=== PATIENT | male | born 1990 | race American Indian/Alaskan Native ===

== ENCOUNTER 2017-01-19 19:13 | Emergency (ER) | payer SELFPAY ==
[2017-01-19 19:32] VITALS: BP 107/73
[2017-01-19 21:29] LABS: Bilirubin,Urine NEG (Negative); Blood,Urine NEG (Negative); Ketones,Urine NEG (Negative); Leukocyte Esterase,Urine NEG (Negative); Mucus,Urine FEW /HPF; Nitrite,Urine NEG (Negative); Protein,Urine <15 mg/dL mg/dL (Negative); Urobilinogen,Urine < 2.0 mg/dL (<2.0); WBC,Urine < 1.0 /HPF (0.0-6.0)
--- NOTE | 2017-01-19 21:29 | Emergency Department Report ---
Entered by KHALIDA MCCARTHY, acting as scribe for GREGORY RONDON PA. ED Male HPI - General Chief complaint: Urogenital-Male Stated complaint: GENITAL PAIN Time Seen by Provider: 01/19/17 20:12 Source: patient Mode of arrival: Ambulatory Limitations: No Limitations - History of Present Illness Initial comments: 26 year old male with no significant PMHx presents to the ED c/o rash around the shaft of penis that began 1 month ago. Denies penile discharge, dysuria, urgency, frequency, nausea, vomiting, fever, chills, abdominal pain, and chest pain. Denies pruritus or pain. Denies being diagnosed with any STDs or having similar symptoms in the past. Reports being sexually active without protection with 1 partner, who is with him in the ED with him to get checked as well. Uses tobacco products daily and consumes EtOH occasionally. MD Complaint: other (blisters around shaft of penis ) Onset/Timin -: month(s) Location: penis Radiation: none Severity: mild Severity scale (0 -10): 0 Quality: burning Consistency: constant Improves with: none Worsens with: none denies other symptoms. denies: discharge, swelling, dysuria, fever, nausea/ vomiting, other (urgency, frequency, chills, chest pain, SOB, and abdominal pain ) - Related Data Sexually active: Yes (1 partner) Previous Rx's Medication Instructions Recorded Last Taken Type Magnesium Citrate [Citrate of 296 ml PO ONCE #1 solution 08/30/14 Unknown Rx Magnesia] traMADol [Ultram 50 MG tab] 50 mg PO Q6HR PRN #14 tablet 08/30/14 Unknown Rx Allergies Allergy/AdvReac Type Severity Reaction Status Date / Time bacitracin Allergy Hives Verified 08/30/14 08:53 [From Neosporin ([id number])] bacitracin zinc Allergy Hives Verified 08/30/14 08:53 [From Neosporin ([id number])] neomycin sulfate Allergy Hives Verified 08/30/14 08:53 [From Neosporin ([id number])] polymyxin B Allergy Hives Verified 08/30/14 08:53 [From Neosporin ([id number])] ED Review of Systems Comment: All other systems reviewed and negative Constitutional: denies: chills, fever, malaise Eyes: denies: eye pain ENT: denies: ear pain, throat pain, congestion Respiratory: denies: orthopnea, shortness of breath Cardiovascular: denies: chest pain, palpitations Endocrine: no symptoms reported Gastrointestinal: denies: abdominal pain, nausea, vomiting Genitourinary: denies: urgency, dysuria, frequency, hematuria, discharge, testicular pain, testicular mass Musculoskeletal: denies: back pain Skin: rash Neurological: denies: headache, weakness ED Past Medical Hx - Past Medical History Previous Medical History?: No - Surgical History Past Surgical History?: No - Social History Smoking Status: Current Every Day Smoker Substance Use Type: Alcohol - Medications Home Medications: Home Medications Medication Instructions Recorded Confirmed Last Taken Type Magnesium Citrate [Citrate of 296 ml PO ONCE #1 solution 08/30/14 Unknown Rx Magnesia] traMADol [Ultram 50 MG tab] 50 mg PO Q6HR PRN #14 tablet 08/30/14 Unknown Rx ED Physical Exam - General Limitations: No Limitations General appearance: alert, in no apparent distress - Head Head exam: Present: atraumatic, normocephalic - Eye Eye exam: Present: normal appearance - ENT ENT exam: Present: normal exam, mucous membranes moist - Neck Neck exam: Present: normal inspection, full ROM - Respiratory Respiratory exam: Present: normal lung sounds bilaterally. Absent: respiratory distress, wheezes, rales, rhonchi, stridor - Cardiovascular Cardiovascular Exam: Present: regular rate, normal rhythm. Absent: systolic murmur, diastolic murmur, rubs, gallop - GI/Abdominal GI/Abdominal exam: Present: soft, normal bowel sounds. Absent: distended, tenderness, guarding, rebound, rigid - exam: Present: other (female director park present during exam). Absent: normal inspection, testicular tenderness, urethral discharge External exam: Present: erythema (erythematous maculopapular rash noted over the head and shaft of penis, no blisters.), other (small rashes present around the shaft of penis). Absent: swelling, lacerations, ecchymosis, bleeding - Extremities Exam Extremities exam: Present: normal inspection, full ROM - Back Exam Back exam: Present: normal inspection, full ROM. Absent: CVA tenderness (R), CVA tenderness (L) - Neurological Exam Neurological exam: Present: alert, oriented X3 - Psychiatric Psychiatric exam: Present: normal affect, normal mood - Skin Skin exam: Present: warm, dry, intact ED Course Vital Signs 01/19/17 19:30 Temperature 98.3 F Pulse Rate 84 Respiratory 18 Rate Blood Pressure 107/73 O2 Sat by Pulse 98 Oximetry - Reevaluation(s) Reevaluation #1: 01/19/17 21:20 At the time of reevaluation patient was not found in his room. ED Disposition Clinical Impression: Penile rash Disposition: LEFT AGAINST MEDICAL ADVICE Is pt being admited?: No Condition: Stable Referrals: PRIMARY CARE,MD [Primary Care Provider] - 3-5 Days This documentation as recorded by the FABIO pink JASMINE,accurately reflects the service I personally performed and the decisions made by ,GREGORY RONDON PA.
== END 2017-01-19 21:15 | disposition left against medical advice (07) ==
LOC: ED 19:13
DX: R21 Rash and other nonspecific skin eruption (principal); F17.200 Nicotine dependence, unspecified, uncomplicated; Z88.1 Allergy status to other antibiotic agents; Z88.8 Allergy status to other drugs, medicaments and biological substances
CPT/HCPCS: 81001; 99282